=== PATIENT | male | born 1965 | race Caucasian/White ===

== ENCOUNTER 2016-12-07 11:29 | Day surgery (SDC) | payer OTHER ==
[~2016-12-07] VITALS: Ht 175.3 cm; Wt 99.8 kg
[~2016-12-07 11:29] MED LIST: AMLODIPINE BESYL5 MG PO; ASPIR 8181 M1 PO; ATORVASTATIN CA20 MG PO; FUROSEMIDE20 MG PO; HYDROCODON-ACE1 EAC9 PO; ISOSORBIDE MONO60 MG PO; LYRICA75 MG PO; MELOXICAM15 MG PO; NITROSTAT0.4 MG SL; OMEPRAZOLE20 MG PO; PROVENTIL HFA6.7 GM IH; SERTRALINE HCL50 MG PO; TRAMADOL HCL50 MG PO
== END 2016-12-07 13:40 | disposition home or self-care (01) ==
LOC: PAIN 11:29 → SDC 12:30 → PAIN 12:30
DX: M46.1 Sacroiliitis, not elsewhere classified (principal); M53.3 Sacrococcygeal disorders, not elsewhere classified; M47.814 Spondylosis without myelopathy or radiculopathy, thoracic region; M47.816 Spondylosis without myelopathy or radiculopathy, lumbar region; I10 Essential (primary) hypertension; J44.9 Chronic obstructive pulmonary disease, unspecified; I25.10 Atherosclerotic heart disease of native coronary artery without angina pectoris; F17.210 Nicotine dependence, cigarettes, uncomplicated; Z79.891 Long term (current) use of opiate analgesic; Z82.61 Family history of arthritis; Z88.0 Allergy status to penicillin
CPT/HCPCS: J1030; J2250; J3010; S0020

== ENCOUNTER 2017-03-01 09:05 | Day surgery (SDC) | payer OTHER ==
[~2017-03-01] VITALS: Ht 175.3 cm; Wt 99.8 kg
== END 2017-03-01 11:48 | disposition home or self-care (01) ==
LOC: PAIN 09:05 → SDC 09:30 → PAIN 11:48
DX: M47.816 Spondylosis without myelopathy or radiculopathy, lumbar region (principal); M54.5 Low back pain; G89.29 Other chronic pain; M53.3 Sacrococcygeal disorders, not elsewhere classified; M96.1 Postlaminectomy syndrome, not elsewhere classified; M47.814 Spondylosis without myelopathy or radiculopathy, thoracic region; M79.1 Myalgia; I25.10 Atherosclerotic heart disease of native coronary artery without angina pectoris; I10 Essential (primary) hypertension; J44.9 Chronic obstructive pulmonary disease, unspecified; F17.200 Nicotine dependence, unspecified, uncomplicated; Z79.82 Long term (current) use of aspirin; Z79.891 Long term (current) use of opiate analgesic; Z88.0 Allergy status to penicillin
CPT/HCPCS: J1030; J2250; J3010; S0020

== ENCOUNTER 2017-03-08 09:05 | Day surgery (SDC) | payer OTHER ==
[~2017-03-08] VITALS: Ht 175.3 cm; Wt 99.8 kg
== END 2017-03-08 10:55 | disposition home or self-care (01) ==
LOC: PAIN 09:05 → SDC 09:30 → PAIN 10:55
DX: M47.816 Spondylosis without myelopathy or radiculopathy, lumbar region (principal); M54.5 Low back pain; G89.29 Other chronic pain; M54.6 Pain in thoracic spine; M96.1 Postlaminectomy syndrome, not elsewhere classified; I25.10 Atherosclerotic heart disease of native coronary artery without angina pectoris; I10 Essential (primary) hypertension; M79.1 Myalgia; M53.3 Sacrococcygeal disorders, not elsewhere classified; F17.200 Nicotine dependence, unspecified, uncomplicated; Z79.82 Long term (current) use of aspirin; Z79.891 Long term (current) use of opiate analgesic; Z88.0 Allergy status to penicillin; Z98.1 Arthrodesis status
CPT/HCPCS: J1030; J2250; J3010; S0020

== ENCOUNTER 2017-06-08 06:47 | Day surgery (SDC) | payer OTHER ==
[~2017-06-08] VITALS: Ht 175.3 cm; Wt 105.7 kg
[~2017-06-08 06:47] MED LIST changes: +IMDUR60 MG PO; -ISOSORBIDE MONO60 MG PO; +LYRICA150 MG PO; -LYRICA75 MG PO; +MOTRIN800 MG PO; +PERCOCET 10/1 TABLET PO; +ZANAFLEX4 M1 PO
== END 2017-06-08 08:25 | disposition home or self-care (01) ==
LOC: PAIN 06:47 → SDC 07:30 → PAIN 07:30
DX: M47.816 Spondylosis without myelopathy or radiculopathy, lumbar region (principal); M54.5 Low back pain; G89.29 Other chronic pain; M96.1 Postlaminectomy syndrome, not elsewhere classified; M79.1 Myalgia; M53.3 Sacrococcygeal disorders, not elsewhere classified; I10 Essential (primary) hypertension; I25.10 Atherosclerotic heart disease of native coronary artery without angina pectoris; F17.200 Nicotine dependence, unspecified, uncomplicated; Z79.82 Long term (current) use of aspirin; Z88.0 Allergy status to penicillin
CPT/HCPCS: 93005; J1030; J2250; J3010; S0020

== ENCOUNTER 2017-12-28 12:32 | Day surgery (SDC) | payer OTHER ==
[~2017-12-28] VITALS: Ht 175.3 cm; Wt 99.8 kg
[~2017-12-28 12:32] MED LIST changes: +CYANOCOBALAM1000 MCG PO; +ERGOCALCIF50000 UNIT PO; -FUROSEMIDE20 MG PO; +LASIX20 MG PO; -SERTRALINE HCL50 MG PO; +ZOLOFT50 MG PO
== END 2017-12-28 14:30 | disposition home or self-care (01) ==
LOC: PAIN 12:32 → SDC 14:00 → PAIN 14:00
DX: M47.26 Other spondylosis with radiculopathy, lumbar region (principal); M48.061 Spinal stenosis, lumbar region without neurogenic claudication; M96.1 Postlaminectomy syndrome, not elsewhere classified; M47.814 Spondylosis without myelopathy or radiculopathy, thoracic region; M53.3 Sacrococcygeal disorders, not elsewhere classified; I10 Essential (primary) hypertension; J44.9 Chronic obstructive pulmonary disease, unspecified; I25.10 Atherosclerotic heart disease of native coronary artery without angina pectoris; I73.9 Peripheral vascular disease, unspecified; Z79.82 Long term (current) use of aspirin; Z79.891 Long term (current) use of opiate analgesic; F17.210 Nicotine dependence, cigarettes, uncomplicated
CPT/HCPCS: J1100; J2250